=== PATIENT | male | born 1980 | race Two or more races ===

== ENCOUNTER 2018-01-11 12:16 | Inpatient (IN) | payer BC, MEDICARE ==
[2018-01-11] MEDS ORDERED: Sodium Chloride 0.9% 1,000 ML IV ONE (13:11)
[2018-01-11 13:27] LABS: % BASOPHILS 0.6 % (0.0-2.0); % EOSINOPHILS 1.1 % (0.0-5.0); % LYMPHOCYTES 22.5 % (20.0-50.0); % MONOCYTES 8.5 % (2.0-10.0); % NEUTROPHILS 67.3 % (40.0-80.0); EOSINOPHILE ABSOLUTE 0.1 Th/cmm (0.1-0.4); HEMATOCRIT 45.3 % (41.0-60); HEMOGLOBIN 15.7 gm/dL (12-16); LYMPHOCYTE ABSOLUTE 1.6 Th/cmm (1.5-3.0); MEAN CELL VOLUME 82.2 fl (80-99); MEAN CORPUSCULAR HEMOGLOBIN 28.4 pg (26.0-30.0); MEAN CORPUSCULAR HGB CONC 34.6 pg (28.0-36.0); MEAN PLATELET VOLUME 7.9 fl; MONOCYTE ABSOLUTE 0.6 Th/cmm (0.3-1.0); NEUTROPHILE ABSOLUTE 4.9 Th/cmm (1.8-8.0); PLATELET COUNT 283 Th/cmm (150-400); RED BLOOD COUNT 5.52 Mil/cmm (4.30-5.70); RED CELL DISTRIBUTION WIDTH 12.1 % (11.5-20.0); WHITE BLOOD COUNT 7.2 Th/cmm (4.8-10.8)
[2018-01-11 13:35] LABS: INR 0.92 (0.5-1.4); PROTHROMBIN TIME (TEST) 9.6 SECONDS (9.5-11.5)
[2018-01-11 14:03] LABS: URINE BILIRUBIN NEGATIVE (NEGATIVE); URINE BLOOD TRACE (NEGATIVE); URINE GLUCOSE (UA) NEGATIVE (NEGATIVE); URINE KETONE NEGATIVE (NEGATIVE); URINE LEUKOCYTE ESTERASE NEGATIVE (NEGATIVE); URINE MICROSCOPIC INDICATED? YES; URINE NITRATE NEGATIVE (NEGATIVE); URINE PROTEIN NEGATIVE (NEGATIVE); URINE SOURCE CLEAN C
[2018-01-11 14:38] LABS: ALB/GLOB RATIO 1.5 (1.0-1.8); ALBUMIN 4.5 gm/dL (4.2-5.5); ALKALINE PHOSPHATASE 105 U/L (34-104); AMYLASE SERUM 47 U/L (29-103); ANION GAP 12.2 (7.0-16.0); BILIRUBIN,TOTAL 1.3 mg/dL (0.3-1.0); BUN - UREA NITROGEN 19 mg/dL (7-25); CALCIUM SERUM 9.3 mg/dL (8.6-10.3); CARBON DIOXIDE 24.2 mEq/L (21.0-31.0); CHLORIDE 106 mEq/L (98-107); CHOLESTEROL 183 mg/dL (<200); CREATININE - SERUM 0.8 mg/dL (0.7-1.3); CREATININE KINASE 412 U/L (30-223); GFR AFRICAN-AMERICAN > 60.0 ml/min (>90); GFR NON AFRICAN-AMERICAN > 60.0 ml/min; GLUCOSE 94 mg/dL (70-105); HDL -HIGH DENSITY LIPOPROTEIN 34 mg/dL (23-92); LIPASE 13 U/L (11-82); POTASSIUM SERUM 3.4 mEq/L (3.5-5.1); SGOT 22 U/L (13-39); SGPT/ALT 40 U/L (7-52); SODIUM SERUM 139 mEq/L (136-145); TOTAL PROTEIN,SERUM 7.5 gm/dL (6.0-8.3); TRIGLYCERIDES 345 mg/dL (<150)
--- NOTE | 2018-01-11 14:49 | Diagnostic Imaging Report ---
CHEST X-RAY: AP view INDICATION: pain COMPARISON: None FINDINGS: Mild increased interstitial lung markings are noted. Suboptimal lung bones are noted. Borderline prominent heart is noted. The osseous structures demonstrate no acute abnormalities. IMPRESSION: Suboptimal lung volume with mild increased interstitial lung markings, nonspecific. No focal consolidation identified.
--- NOTE | 2018-01-11 15:03 | Diagnostic Imaging Report ---
CT abdomen and pelvis without intravenous contrast Indication: Abdominal pain Comparison: None, Technique: Axial images were obtained from the lung bases to the bilateral proximal femurs without IV contrast. Coronal reconstructions were made. total DLP: 431, CTDI8.8 FINDINGS: Hypoventilatory changes of the lung bases are noted. Assessment of the solid organs is limited due to lack of IV contrast. No evidence of focal hepatic or splenic lesions. Exam is also limited due to motion. No focal pancreatic or adrenal lesions. No hydronephrosis or focal renal lesions. There is mild distal fecal impaction. Small bilateral fat-containing inguinal hernias are noted. Diverticulosis is noted without evidence of diverticulitis. Gas-filled loops of bowel are noted without evidence of obstruction. No appendicitis. Gas distended stomach is also noted. No evidence of free fluid or free air. Osseous structures demonstrate no acute abnormalities. Borderline prominent mesenteric lymph nodes are noted. IMPRESSION: Mild distal fecal impaction. Gas-filled loops of bowel and stomach without evidence of obstruction. Diverticulosis without diverticulitis No evidence of appendicitis. Small bilateral fat-containing inguinal hernias. Borderline prominent mesenteric lymph nodes nonspecific and possibly due to adenitis.
--- NOTE | 2018-01-11 15:18 | ED Physician Chart ---
ED Chief Complaint/HPI - Patient Information Date Seen:: 01/11/18 Time Seen:: 12:40 Chief Complaint:: Hematochezia History of Present Illness:: onset x 2 days of hematochezia, melena, N/V/D x 15, and diffuse, intermittent, crampy abdominal pain; pt denies trauma, H/as, S/T, neck pain, C/P, SOB, A/C, cough, hematemesis, or urinary s/s Allergies:: Allergies Allergy/AdvReac Type Severity Reaction Status Date / Time Penicillins [PCN] Allergy Verified 01/11/18 12:43 Vitals:: Vital Signs - 8 hr 01/11/18 12:43 Temp 98.3 F HR 81 RR 16 O2 Sat % 97 Historian:: Patient Review:: Nurse's Note Reviewed ED Review of Systems - Review of Systems General/Constitutional: No fever, No chills, No weight loss, No weakness, No diaphoresis, No edema, No loss of appetite Skin: No skin lesions, No rash, No bruising Head: No headache, No light-headedness Eyes: No loss of vision, No pain, No diplopia ENT: No earache, No nasal drainage, No sore throat, No tinnitus Neck: No neck pain, No swelling, No thyromegaly, No stiffness, No mass noted Cardio Vascular: No chest pain, No palpitations, No PND, No orthopnea, No edema Pulmonary: No SOB, No cough, No sputum, No wheezing GI: Nausea, Vomiting, Diarrhea, Pain, Melena, Hematochezia, No constipation, No hematemesis G/U: No dysuria, No frequency, No hematuria, No nacturia Musculoskeletal: No bone or joint pain, No back pain, No muscle pain Endocrine: No polyuria, No polydipsia Psychiatric: No prior psych history, No depression, No anxiety, No suicidal ideation, No homicidal ideation, No auditory hallucination, No visual hallucination Hematopoietic: No bruising, No lymphadenopathy Allergic/Immuno: No urticaria, No angioedema Neurological: No syncope, No focal symptoms, No weakness, No paresthesia, No headache, No seizure, No dizziness, No confusion, No vertigo ED Past Medical History - Past Medical History Obtainable: Yes Past Medical History: No significant medical hx Family History: HTN Social History: Non Smoker, No Alcohol, No Drug Use, Single Surgical History: None Psychiatricy History: None Medication: Reviewed Family Medical History - Family Member Father Living Status: Still Living Hx Family Diabetes: Yes ED Physical Exam - Physical Examination General/Constitutional: Awake, Well-developed, well-nourished, Alert, No distress, GCS 15, Non-toxic appearing, Ambulatory Head: Atraumatic Eyes: Lids, conjuctiva normal, PERRL, EOMI Skin: Nl inspection, No rash, No skin lesions, No ecchymosis, Well hydrated, No lymphadenopathy ENMT: External ears, nose nl, TM canals nl, Nasal exam nl, Lips, teeth, gums nl , Oropharynx nl, Tonsils nl Neck: Nontender, Full ROM w/o pain, No JVD, No nuchal rigidity, No bruit, No mass, No stridor Respiratory: Nl effort/Exclusion, Clear to Auscultation, No Wheeze/Rhonchi/Rales Cardio Vascular: RRR, No murmur, gallop, rubs, NL S1 S2 GI: No tenderness/rebounding/guarding, No organomegaly, No hernia, Normal BS's, Nondistended, No mass/bruits, No McBurney tenderness Other GI comments:: + Hematochezia; no pulsatile masses; good BS : No CVA tenderness Extremities: No tenderness or effusion, Full ROM, normal strength in all extremities, No edema, Normal digits & nails Neuro/Psych: Alert/oriented, DTR's symmetric, Normal sensory exam, Normal motor strength, Judgement/insight normal, Mood normal, Normal gait, No focal deficits Misc: Normal back, No paraspinal tenderness ED Labs/Radiology/EKG Results - Lab Results Results: Laboratory Tests 01/11/18 01/11/18 01/11/18 13:15 13:15 13:15 WBC 7.2 RBC 5.52 Hgb 15.7 Hct 45.3 MCV 82.2 MCH 28.4 MCHC Differential 34.6 RDW 12.1 Plt Count 283 MPV 7.9 Neutrophils % 67.3 Lymphocytes % 22.5 Monocytes % 8.5 Eosinophils % 1.1 Basophils % 0.6 PT 9.6 INR 0.92 Sodium 139 Potassium 3.4 L Chloride 106 Carbon Dioxide 24.2 Anion Gap 12.2 BUN 19 Creatinine 0.8 Est GFR ( Amer) > 60.0 Est GFR (Non-Af Amer) > 60.0 BUN/Creatinine Ratio 23.8 Glucose 94 Calcium 9.3 Total Bilirubin 1.3 H AST 22 ALT 40 Alkaline Phosphatase 105 H Creatine Kinase 412 H Troponin I B-Natriuretic Peptide Total Protein 7.5 Albumin 4.5 Globulin 3.0 Albumin/Globulin Ratio 1.5 Triglycerides 345 H Cholesterol 183 LDL Cholesterol Direct 114 HDL Cholesterol 34 Amylase 47 Lipase 13 01/11/18 01/11/18 13:15 13:15 WBC RBC Hgb Hct MCV MCH MCHC Differential RDW Plt Count MPV Neutrophils % Lymphocytes % Monocytes % Eosinophils % Basophils % PT INR Sodium Potassium Chloride Carbon Dioxide Anion Gap BUN Creatinine Est GFR ( Amer) Est GFR (Non-Af Amer) BUN/Creatinine Ratio Glucose Calcium Total Bilirubin AST ALT Alkaline Phosphatase Creatine Kinase Troponin I 0.01 B-Natriuretic Peptide 12.5 Total Protein Albumin Globulin Albumin/Globulin Ratio Triglycerides Cholesterol LDL Cholesterol Direct HDL Cholesterol Amylase Lipase Comments:: K+: 3.4 - Radiology Results Comments:: NAD - EKG Interpretations EKG Time:: 13:23 Rate & Rhythm: 70; NSR Comments:: non-specific st-t changes ED Septic Shock - . Is Septic Shock (SBP<90, OR Lactate>4 mmol\L) present?: No - <6hrs of presentation: Vital Signs: Vital Signs - 8 hr 01/11/18 12:43 Temp 98.3 F HR 81 RR 16 O2 Sat % 97 ED Reassessment (Disposition) - Reassessment Reassessment Condition:: Improved - Diagnosis Diagnosis:: Dx: Hypokalemia; Abdominal Pain; N/V/D; Hematochezia; AGE; GI Bleed - Aftercare/Follow up Instructions Aftercare/Follow-Up Instructions:: Counseled pt regarding lab results/diagnosis & need follow up, Counseled pt & family regarding lab results/diagnosis & need follow up - Patient Disposition Discharge/Transfer:: Acute Care w/in this hosp Accepting Physician:: Dr. Cormier Time Called:: 1400 Time Responded:: 14:00 Admitted to:: Telemetry Spoke to:: Dr. Cormier Admitting Medical Physician:: Dr. Cormier Condition at Disposition:: Stable, Improved
[2018-01-11] MEDS ORDERED: Potassium Chloride 20 mEq ER Tab PO ONE ×2 (15:35→15:53)
[2018-01-11 15:40] LABS: URINE CLARITY CLEAR (CLEAR); URINE COLOR YELLOW
[2018-01-11 15:41] LABS: URINE BACTERIA NONE SEEN /hpf (NONE SEEN); URINE EPITHELIAL CELLS NONE SEEN /lpf (FEW); URINE RBC NONE SEEN /hpf (0-5); URINE WBC NONE SEEN /hpf (0-5)
[2018-01-11] MEDS ORDERED: Sodium Chloride 0.9% 1,000 ML IV SCH (22:30)
[2018-01-12 05:54] LABS: % BASOPHILS 0.4 % (0.0-2.0); % EOSINOPHILS 1.9 % (0.0-5.0); % LYMPHOCYTES 30.1 % (20.0-50.0); % NEUTROPHILS 59.6 % (40.0-80.0); EOSINOPHILE ABSOLUTE 0.1 Th/cmm (0.1-0.4); HEMATOCRIT 43.7 % (41.0-60); HEMOGLOBIN 14.8 gm/dL (12-16); LYMPHOCYTE ABSOLUTE 1.9 Th/cmm (1.5-3.0); MEAN CELL VOLUME 83.9 fl (80-99); MEAN CORPUSCULAR HEMOGLOBIN 28.4 pg (26.0-30.0); MEAN CORPUSCULAR HGB CONC 33.8 pg (28.0-36.0); MEAN PLATELET VOLUME 8.2 fl; MONOCYTE ABSOLUTE 0.5 Th/cmm (0.3-1.0); NEUTROPHILE ABSOLUTE 3.9 Th/cmm (1.8-8.0); PLATELET COUNT 259 Th/cmm (150-400); RED BLOOD COUNT 5.21 Mil/cmm (4.30-5.70); RED CELL DISTRIBUTION WIDTH 12.4 % (11.5-20.0); WHITE BLOOD COUNT 6.4 Th/cmm (4.8-10.8)
[2018-01-12 06:06] LABS: ALB/GLOB RATIO 1.3 (1.0-1.8); ALBUMIN 3.6 gm/dL (4.2-5.5); ALKALINE PHOSPHATASE 78 U/L (34-104); ANION GAP 8.6 (7.0-16.0); BILIRUBIN,TOTAL 0.9 mg/dL (0.3-1.0); BUN - UREA NITROGEN 15 mg/dL (7-25); CALCIUM SERUM 8.5 mg/dL (8.6-10.3); CARBON DIOXIDE 24.2 mEq/L (21.0-31.0); CHLORIDE 108 mEq/L (98-107); CREATININE - SERUM 0.8 mg/dL (0.7-1.3); GFR AFRICAN-AMERICAN > 60.0 ml/min (>90); GFR NON AFRICAN-AMERICAN > 60.0 ml/min; GLUCOSE 86 mg/dL (70-105); POTASSIUM SERUM 3.8 mEq/L (3.5-5.1); SGOT 20 U/L (13-39); SGPT/ALT 32 U/L (7-52); SODIUM SERUM 137 mEq/L (136-145); TOTAL PROTEIN,SERUM 6.3 gm/dL (6.0-8.3)
[2018-01-12 06:10] LABS: PROTHROMBIN TIME (TEST) 10.4 SECONDS (9.5-11.5)
--- NOTE | 2018-01-12 17:26 | History & Physical ---
ADMIT DATE: 01/11/2018 REASON FOR ADMISSION: Admitted for hematochezia. HISTORY OF PRESENT ILLNESS: I am seeing young male patient, came to the Emergency Room complaining of 2-day history of nausea, vomiting and diarrhea and diffuse intermittent, crampy abdominal pain and hematochezia for 2 days. The patient complained also of some melanotic stools and the patient had no chest pain or cough. No other problems. PAST MEDICAL HISTORY: Unremarkable and the patient drinks no alcohol. Nonsmoker. PHYSICAL EXAMINATION: GENERAL: The patient is alert male patient. VITAL SIGNS: As noted in chart. HEAD: Normal. ENT: Normal. LUNGS: Clear. CARDIOVASCULAR SYSTEM: S1 and S2 heard. ABDOMEN: Soft. Bowel sounds are heard. CENTRAL NERVOUS SYSTEM: Grossly normal. LABORATORY DATA: His hemoglobin was 15.57, hematocrit was 45. Electrolytes were normal and the patient's potassium was slightly low. DIAGNOSES: Abdominal pain, nausea, vomiting, upper GI bleeding and hypokalemia were made. PLAN: The patient is going to be admitted and will be given IV fluids and the followup hemoglobin, GI consult and I will follow the patient. JOB# [id number]
--- NOTE | 2018-01-13 01:13 | Consultation ---
DATE OF CONSULTATION: 01/12/2018 INPATIENT GASTROINTESTINAL CONSULTATION REFERRING PHYSICIAN: Dr. Cormier. REASON FOR CONSULTATION: Rectal bleeding. HISTORY OF PRESENT ILLNESS: A 37-year-old male who has been having bilateral lower abdominal pain for the past 6 days associated with rectal bleeding. The patient states that it has since resolved. He also had episodes of nausea, vomiting without any hematemesis, coffee-ground emesis. By the time I am seeing the patient, he feels fine and wants to go home. PAST MEDICAL HISTORY: None. PAST SURGICAL HISTORY: None to abdomen recently. FAMILY HISTORY: Noncontributory. SOCIAL HISTORY: Denies tobacco, alcohol or IV drug usage. ALLERGIES: PENICILLIN. CURRENT MEDICATIONS: Protonix, IV fluids. REVIEW OF SYSTEMS: Ten point review of system was performed. Pertinent positive was rectal bleeding. All systems were otherwise negative. PHYSICAL EXAMINATION: VITAL SIGNS: Temperature 97.9, breathing 18, pulse 72, blood pressure 122/79, satting 96%. GENERAL: In no apparent distress. HEENT: Eyes: Anicteric. Normal conjunctivae. Normocephalic, atraumatic. Moist mucous membranes. NECK: Soft, supple. CHEST: Clear with normal effort. CARDIOVASCULAR: Regular rate and rhythm. ABDOMEN: Soft, nontender, nondistended. SKIN: Warm, dry. EXTREMITIES: Reveal no cyanosis. PSYCHOLOGIC: Alert and oriented x 3. LABORATORY DATA: Show white count 6.4, hemoglobin 14.8, platelets of 259. INR is 1. BUN 15, creatinine 0.8. Total bilirubin 0.9, AST 20, ALT 32, alkaline phosphatase 78. Stool OB negative. DIAGNOSTIC DATA: CT of the abdomen and pelvis shows fecal impaction, diverticulosis without diverticulitis, mesenteric lymph nodes, possibly due to adenitis. IMPRESSION: A 37-year-old male with recent abdominal pain that has since resolved, allegedly had rectal bleeding that has since resolved. Stool OB is negative. Hemoglobin is normal. Cause of abdominal pain could be due to mesenteric adenitis, but since this seems to have clinically resolved, colonoscopy was discussed with the patient, but since he is not actively bleeding and the stool OB is negative, he does not want it done. I told him that we could miss the diagnosis. He understands this as well as the ramification. He would like to follow up with his primary doctor to decide in the future if he will pursue colonoscopy. Case was also discussed with Dr. Cormier, who will discharge the patient. PLAN: 1. Continue supportive care. 2. Consider use of laxatives such as MiraLax and Colace, which the patient to get [id number]. 3. Follow up with primary medical doctor and consider colonoscopy if symptoms recur as an outpatient. Thank you for allowing me to participate. Please call me if you have any questions. JOB# [id number]
--- NOTE | 2018-01-16 02:01 | Discharge Summary ---
DATE OF DISCHARGE: 01/12/2018 HOSPITAL COURSE: The patient is a young male patient, who came to the Emergency Room, had a history of hematemesis. The patient has been drinking. The patient had 2 days history of nausea and vomiting, and hematochezia. The patient was admitted for that. He had diagnoses of hematochezia, rule out gastrointestinal bleeding, hypokalemia. The patient was given potassium supplement. He felt better. The patient was when I saw him is much better and the patient was admitted. The patient wanted to go home and the patient was discharged in stable condition. He was advised to come back to my office and to have a GI workup as an outpatient. JOB# [id number]
== END 2018-01-12 15:30 | disposition home or self-care (01) | DRG 379 ==
LOC: ER 12:16 → TELE 16:00
PROVIDERS: ADMIT Internal Medicine; ATTEND Internal Medicine
DX: K92.1 Melena (principal); E87.6 Hypokalemia; K52.9 Noninfective gastroenteritis and colitis, unspecified; Z88.0 Allergy status to penicillin; Z82.49 Family history of ischemic heart disease and other diseases of the circulatory system
CPT/HCPCS: 36415-UA; 71045-TC; 80053-TC; 80061-TC; 81001-TC; 82150-TC; 82270-TC; 82550-TC; 82553; 83690-TC; 83880-TC; 84484-TC; 85025-TC; 85610-TC; 93005; 94760; C9113; J2405; J7030